=== PATIENT | male | born 1950 | race Caucasian/White ===

== ENCOUNTER → 2017-10-01 | Outpatient (CLI) | payer OTHER ==
--- NOTE | 2017-10-01 11:44 | PCVCIMAG ---
EXAM: VENOUS DUPLEX right lower extremity INDICATION: Deep venous thrombosis. FINDINGS: Right leg: No thrombus in the common femoral vein. Nonocclusive chronic appearing thrombus in the upper main femoral vein and lower main femoral vein and upper popliteal vein. The lower popliteal vein is patent as is the mid main femoral vein. Incidental note is made of a 5.0 x 3.5 x 5.2 cm popliteal cyst. IMPRESSION: Mild nonocclusive chronic appearing thrombus in the main femoral vein and upper popliteal vein showing little overall change since 2014 at 2015 studies. Unchanged popliteal cyst. LOC:[id number]
== END | disposition home or self-care (01) ==
LOC: PCVCIMAG 09:57
PROVIDERS: ATTEND Internal Medicine Cardiovascular Disease
DX: I82.401 Acute embolism and thrombosis of unspecified deep veins of right lower extremity (principal); M71.21 Synovial cyst of popliteal space [Baker], right knee
CPT/HCPCS: 93971

== ENCOUNTER → 2017-10-02 | Outpatient (CLI) | payer OTHER ==
--- NOTE | 2017-10-02 17:31 | PCVCIMAG ---
APPROVED REPORT Exam: Stress Echocardiogram Indication: bernal,htn,decreased exercise tolerrnce Patient Location: Echo lab Stress Nurse: Gina Maier RN Room #: 2 Status: routine Ht: 6 ft 0 in HR: 63 bpm BP: 128/80 mmHg Rhythm: NSR Medical History Medical History: HTN Cardiac Risk Factors: HTN, Hyperlipidemia Previous Cardiac Procedures: none Exercise History: Sedentary Procedure The patient underwent an Exercise Stress Test using the Toni Protocol. Blood pressure, heart rate, and EKG were monitored. An Echocardiogram was performed by telephone technician in four stages in quad fashion. At peak stress, four selected images were obtained and placed side by side with resting images for comparison. Stress Test Details Stress Test: Exercise stress testing was performed using a Toni protocol. HR Resting HR: 63 bpmMax Heart Rate (APMHR): 155 bpm Max HR Achieved: 139 bpmTarget HR (85% APMHR): 131 bpm % of APMHR: 89 Recovery HR: 83 bpm HR response to stress: Normal HR response to stress BP Resting BP: 128/82 mmHg Max BP: 170/70 mmHg Recovery BP: 152/70 mmHg ECG Resting ECG: Sinus Rhythm Stress ECG: Sinus Rhythm ST Change: Non-ischemic Maximum ST Deviation: 0.25 mm Arrhythmia: occasional PVCs and couplets Recovery ECG: Sinus Rhythm Recovery ST Change: Non-ischemic Recovery ST Deviation: 0.25 mm Recovery Arrhythmia: None Clinical Reason for Termination: Maximal effort Stress Symptoms: none Exercise duration: 7 min 30 sec Highest Stage Achieved: Stage 3: 3.4 mph at 14% grade. Exercise capacity: 10.1 METs Overall Exercise Capacity for Age: Average Angina Score: None Stress ECG Conclusion The patient exercised according to the Toni Protocol for 7:30 minutes, achieving a maximum work level of 10.1 METS. The resting heart rate of 63 bpm, long to a maximal level of 139 bpm. This value represents 89 % of the maximal, age-predicted heart rate. The resting blood pressure of128/82 mmHg, long to a maximum blood pressure of 170/70 mmHg. The exercise was stopped due to fatigue. L[place]y Treadmill Score is 5.8 which is Low risk. Pre-Stress Echo The resting Echocardiogram showed normal left ventricular contractility with an estimated Ejection Fraction of about 55-60%. Normal wall motion in all segments on baseline images. Post-Stress Echo The stress Echocardiogram showed normal left ventricular contractility with an estimated Ejection Fraction of about 65-70%. Normal augmentation of wall motion in all segments on post stress images. Clinical No clinical or ECG evidence for ischemia. Conclusion Clinical Response: Non-ischemic Exercise Capacity: Average Stress ECG Response: Non-ischemic Stress Echo Images: Non-ischemic No clinical, EKG or echocardiographic evidence for ischemia. No echocardiographic evidence for exercise induced ischemia. Normal stress echocardiogram with maximal exercise stress. <Conclusion> No clinical, EKG or echocardiographic evidence for ischemia. No echocardiographic evidence for exercise induced ischemia. Normal stress echocardiogram with maximal exercise stress.
== END | disposition home or self-care (01) ==
LOC: PCVCIMAG 14:47
PROVIDERS: ATTEND Internal Medicine Cardiovascular Disease
DX: I10 Essential (primary) hypertension (principal); I82.409 Acute embolism and thrombosis of unspecified deep veins of unspecified lower extremity; R06.02 Shortness of breath; E78.5 Hyperlipidemia, unspecified; R68.89 Other general symptoms and signs
CPT/HCPCS: 93325; 93351